=== PATIENT | female | born 1950 | race Caucasian/White ===

== ENCOUNTER 2017-03-05 14:31 | Emergency (ER) | payer MEDICARE, MEDICAID ==
[~2017-03-05] VITALS: Ht 157.5 cm; Wt 78.0 kg
[2017-03-05 14:41] VITALS: BP 159/78; PULSE 81; RESP 18; TEMP 98.7; O2SAT 95
[2017-03-05] MEDS ORDERED: TRAZ100T6 PO (14:57)
[2017-03-05] MEDS ORDERED: LEVO25TA4 PO (14:57)
[2017-03-05] MEDS ORDERED: PROT40TA PO (14:57)
[2017-03-05] MEDS ORDERED: METO25TA6 PO (14:57)
[2017-03-05] MEDS ORDERED: VITA250C3 CHEW (14:57)
[2017-03-05] MEDS ORDERED: GABA100C4 PO (14:57)
[2017-03-05] MEDS ORDERED: VITA1CAP7 (14:57)
[2017-03-05] MEDS ORDERED: CYAN50LO (14:57)
[2017-03-05] MEDS ORDERED: PRED10 PO (14:57)
[2017-03-05] MEDS ORDERED: ZOLO50TA PO (14:57)
[2017-03-05] MEDS ORDERED: SERO100T PO (14:57)
[2017-03-05] MEDS ORDERED: VITA1000 PO (14:57)
[2017-03-05] MEDS ORDERED: LEVE250 PO (14:57)
[2017-03-05 15:03] VITALS: RESP 18; O2SAT 95
[2017-03-05 15:53] LABS: BASOPHIL % 0.3 % (0.0-2.0); EOSINOPHIL % 0.3 % (0.0-4.0); HEMATOCRIT 41.1 % (35.0-46.0); HEMO FLAGS DIFF FINAL; LYMPH % 16.8 % (9.0-44.0); LYMPHOCYTE # 1.3 TH/MM3 (1.0-4.8); MEAN CELL VOLUME 86.2 FL (80.0-100.0); MEAN CORPUSCULAR HEMOGLOBIN 28.1 PG (27.0-34.0); MEAN CORPUSCULAR HGB CONC 32.6 % (32.0-36.0); NEUT % 79.6 % (16.0-70.0); PLATELET COUNT 236 TH/MM3 (150-450); RED BLOOD COUNT 4.77 MIL/MM3 (4.00-5.30); RED CELL DISTRIBUTION WIDTH 17.6 % (11.6-17.2); WHITE BLOOD COUNT 7.6 TH/MM3 (4.0-11.0)
--- NOTE | 2017-03-05 16:04 | RADRPT ---
EXAM DATE/TIME: 03/05/2017 15:18 [facility] COMPARISON: No previous studies available for comparison. INDICATIONS : Right arm pain. MEDICAL HISTORY : Hypertension. Gastroesophageal reflux disease. Thyroid disease. Cerebrovascular accident. Migraines. Asthma. SURGICAL HISTORY : Cholecystectomy. Appendectomy. Hysterectomy. section. Right above the knee amputation. ENCOUNTER: Initial ACUITY: 2 day PAIN SCORE: 5/10 LOCATION: Right arm. FINDINGS: There is spontaneous flow documented in the brachial, basilic, cephalic, axillary, and subclavian vei ns. The vessels are compressible and augmentation response is documented. No filling defects are se en. The flow is phasic with respiration. Direction of flow in the jugular vein is caudal. CONCLUSION: No DVT of the right upper extremity. Jameson Hollins MD on March 05, 2017 at 16:02 Board Certified Radiologist. This report was verified electronically.
[2017-03-05 16:06] LABS: BACTERIA, URINE RARE /hpf; BLOOD, URINE NEG (NEG); GLUCOSE,URINE NEG (NEG); KETONE, URINE NEG (NEG); NITRITE,URINE NEG (NEG); SQUAMOUS EPITHELIAL CELL URINE 1 /hpf (0-5); URINE COLOR LIGHT-YELLOW (YELLW/STRAW)
[2017-03-05 16:06] LABS: ALT (GPT) 25 U/L (10-53); ANION GAP 6 MEQ/L (5-15); AST (GOT) 23 U/L (15-37); BICARBONATE 29.6 MEQ/L (21.0-32.0); BLOOD UREA NITROGEN 5 MG/DL (7-18); CHLORIDE 107 MEQ/L (98-107); GLOMERULAR FILTRATION RATE 73 ML/MIN (>89); SODIUM (NA) 143 MEQ/L (136-145)
[2017-03-05 16:09] LABS: ALKALINE PHOSPHATASE 75 U/L (45-117); APTT (PATIENT) 25.2 SEC (24.3-30.1); PROTHROMBIN TIME - PATIENT 10.7 SEC (9.8-11.6); TOTAL BILIRUBIN ADULT 0.3 MG/DL (0.2-1.0)
[2017-03-05 16:09] LABS: COMMENT (UR) CATH-CULTURE IND; CULTURE IF INDICATED CATH CULTURE IND
--- NOTE | 2017-03-05 16:21 | RADRPT ---
EXAM DATE/TIME: 03/05/2017 16:08 [facility] COMPARISON: No previous studies available for comparison. INDICATIONS : Nontraumatic right arm pain. MEDICAL HISTORY : Chronic obstructive pulmonary disease. Hypertension Deep venous thrombosis. SURGICAL HISTORY : IVC filter placement. ENCOUNTER: Initial ACUITY: 1 day PAIN SCORE: 10/10 LOCATION: Right arm FINDINGS: The right humerus is intact and has normal morphology. There is mild osteoarthritis of the acromioclavicular and glenohumeral joints of the right shoulder. CONCLUSION: Right humerus within normal limits. Mild right shoulder osteoarthritis. Jameson Hollins MD on March 05, 2017 at 16:18 Board Certified Radiologist. This report was verified electronically.
--- NOTE | 2017-03-05 16:31 | RADRPT ---
EXAM DATE/TIME: 03/05/2017 16:02 [facility] COMPARISON: No previous studies available for comparison. INDICATIONS : Shortness of breath. MEDICAL HISTORY : Chronic obstructive pulmonary disease. Hypertension Deep venous thrombosis. SURGICAL HISTORY : IVC filter placement. ENCOUNTER: Initial ACUITY: 1 day PAIN SCORE: 0/10 LOCATION: Bilateral chest FINDINGS: The heart and mediastinal structures are normal. The pulmonary vascular pattern is also normal. Min imal right perihilar streakiness is noted consistent with probable atelectasis. There is elevation o f the right hemidiaphragm. CONCLUSION: 1. Right perihilar streakiness consistent with atelectasis and/or scarring. 2. Elevation of the right hemidiaphragm. Peter Pinzon MD on March 05, 2017 at 16:14 Board Certified Radiologist. This report was verified electronically.
--- NOTE | 2017-03-05 16:44 | RADRPT ---
EXAM DATE/TIME: 03/05/2017 16:05 [facility] COMPARISON: No previous studies available for comparison. INDICATIONS : Nontraumatic right arm pain. MEDICAL HISTORY : Chronic obstructive pulmonary disease. Hypertension. Deep venous thrombosis. SURGICAL HISTORY : IVC filter placement. ENCOUNTER: Initial ACUITY: 1 day PAIN SCORE: 10/10 LOCATION: Right arm FINDINGS: Mild degenerative changes are noted involving the right acromioclavicular and glenohumeral joints. T here is no acute fracture or dislocation. CONCLUSION: 1. No acute fracture or dislocation. 2. Mild degenerative changes involving the right acromioclavicular and glenohumeral joints. Peter Pinzon MD on March 05, 2017 at 16:16 Board Certified Radiologist. This report was verified electronically.
[2017-03-05 16:55] VITALS: BP 144/72; PULSE 80; RESP 18; O2SAT 96
[2017-03-05] MEDS ORDERED: MORPHINE SULFATE 4 MG/ML INJ IV PUSH ONE ×2 (17:00→18:15)
--- NOTE | 2017-03-05 17:15 | RADRPT ---
EXAM DATE/TIME: 03/05/2017 16:54 [facility] COMPARISON: No previous studies available for comparison. INDICATIONS : Abdomen pain. ORAL CONTRAST: No oral contrast ingested. RADIATION DOSE: 10.63 CTDIvol (mGy) MEDICAL HISTORY : Cardiovascular disease. Stroke Diabetes mellitus type 2. SURGICAL HISTORY : None. ENCOUNTER: Initial ACUITY: 1 day PAIN SCALE: 4/10 LOCATION: Bilateral abdomen TECHNIQUE: Volumetric scanning of the abdomen and pelvis was performed. Using automated exposure control and ad justment of the mA and/or kV according to patient size, radiation dose was kept as low as reasonably achievable to obtain optimal diagnostic quality images. DICOM format image data is available electro nically for review and comparison. FINDINGS: LOWER LUNGS: Right basilar discoid atelectasis and/or fibrotic scarring is noted. Elevation of the right hemidiaph ragm is noted. LIVER: Homogeneous density without lesion. There is no dilation of the biliary tree. No calcified gallston es. Status post cholecystectomy. SPLEEN: Normal size without lesion. PANCREAS: Within normal limits. KIDNEYS: Normal in size and shape. There is no mass, stone, or hydronephrosis. ADRENAL GLANDS: Within normal limits. VASCULAR: There is no aortic aneurysm. An inferior vena cava filter is noted. BOWEL/MESENTERY: Uncomplicated colonic diverticulosis is noted. ABDOMINAL WALL: Within normal limits. RETROPERITONEUM: There is no lymphadenopathy. BLADDER: No wall thickening or mass. REPRODUCTIVE: Within normal limits. INGUINAL: There is no lymphadenopathy or hernia. MUSCULOSKELETAL: Mild degenerative changes are noted throughout the thoracic spine. CONCLUSION: 1. Uncomplicated colonic diverticulosis. 2. No acute intra-abdominal process. Peter Pinzon MD on March 05, 2017 at 17:08 Board Certified Radiologist. This report was verified electronically.
--- NOTE | 2017-03-05 18:05 | PD ---
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 She's been out of the hospital for one month and doing well but over the past week she says she's been increasingly fatigued, she says she's been nauseous and she's had some loose stools. She also says she's had a lot of pain in her right arm. She says she has been told in the past that she has a rotator cuff injury on the right side. She has a new wheelchair that she' s been having a transfer from and she wonders if that's exacerbated her pain. She also wasn't sure if she sprained her arm when she fell earlier today as she fell during a transfer. She did have a PICC line in that arm a month ago. PFSH Past Medical History Asthma: Yes Cardiovascular Problems: Yes Cerebrovascular Accident: Yes Diabetes: Yes Patient Takes Glucophage: No GERD: Yes Hypertension: Yes Respiratory: Yes Migraines: Yes Thyroid Disease: Yes Tetanus Vaccination: > 5 Years Influenza Vaccination: No Past Surgical History Appendectomy: Yes Section: Yes (X1) Cholecystectomy: Yes Hysterectomy: Yes Social History Alcohol Use: No Tobacco Use: No Substance Use: No Allergies-Medications (Allergen,Severity, Reaction): Coded Allergies: Iodinated Contrast- Oral and IV Dye (Verified Allergy, Severe, CARDIAC ARREST, 03/05/17) Vjzzgvi-Zec-Ivr Reductase Inhibitor (Verified Allergy, Intermediate, RHABDO, 03/05/17) codeine (Verified Allergy, Intermediate, HIVES, 03/05/17) erythromycin base (Verified Allergy, Intermediate, ARRHYTHMIAS, 03/05/17) metoclopramide (Verified Allergy, Intermediate, RASH, 03/05/17) prochlorperazine (Verified Allergy, Intermediate, RASH, 03/05/17) promethazine (Verified Allergy, Intermediate, RASH, 03/05/17) Reported Meds & Prescriptions Reported Meds & Active Scripts Active Reported Vitamin B-12 (Cyanocobalamin (Vitamin B-12)) 50 Mcg Lozenge Vitamin A (Vitamin A Palmitate) 10,000 Unit Capsule Vitamin D-1000 (Cholecalciferol) 1,000 Unit Tab 1,000 Units PO DAILY Vitamin C (Ascorbic Acid) 250 Mg Chew 250 Mg CHEW DAILY Trazodone (Trazodone HCl) 100 Mg Tablet 100 Mg PO HS Zoloft (Sertraline HCl) 50 Mg Tab 50 Mg PO DAILY Seroquel (Quetiapine Fumarate) 100 Mg Tab 100 Mg PO HS Keppra (Levetiracetam) 250 Mg Tab 100 Mg PO BID Levothyroxine (Levothyroxine Sodium) 25 Mcg Tab 25 Mcg PO DAILY Protonix (Pantoprazole Sodium) 40 Mg Tab 40 Mg PO DAILY Prednisone 10 Mg Tab 10 Mg PO DAILY Gabapentin 100 Mg Cap 200 Mg PO QID Metoprolol Succinate ER 24 HR (Metoprolol Succinate) 25 Mg Tab 12.5 Mg PO BID Review of Systems Except as stated in HPI: all other systems reviewed are Neg Physical Exam Narrative GENERAL:Well appearing, no acute distress SKIN: Dry with skin tenting. No warmth or redness or swelling of the right upper extremity. HEAD: Atraumatic. Normocephalic. EYES: Pupils equal and round. No injection or drainage. ENT: Moist mucous membranes NECK: Trachea midline. CARDIOVASCULAR: Regular rate and rhythm. No murmur appreciated. 2+ bilateral radial pulses with normal capillary refill in both hands. RESPIRATORY: Clear to auscultation. Breath sounds equal bilaterally. GASTROINTESTINAL: Abdomen soft, mildly diffusely tender with no rebound or guarding. MUSCULOSKELETAL: Pain with abduction of the right shoulder, tender to palpation over the right humerus. NEUROLOGICAL: Awake and alert. No obvious cranial nerve deficits. No dysarthria or aphasia. No upper or lower extremity drift. No upper extremity ataxia. Visual figueroa intact. PSYCHIATRIC: Appropriate mood and affect; insight and judgment normal. Data Data Last Documented VS Vital Signs Date Time Temp Pulse Resp B/P (MAP) Pulse Ox O2 Delivery O2 Flow Rate FiO2 03/05/17 16:55 80 18 144/72 (96) 96 Room Air 03/05/17 14:41 98.7 Orders Orders Complete Blood Count With Diff (03/05/17 14:48) Comprehensive Metabolic Panel (03/05/17 14:48) Prothrombin Time / Inr (Pt) (03/05/17 14:48) Act Partial Throm Time (Ptt) (03/05/17 14:48) Lactic Acid Sepsis Protocol (03/05/17 14:48) Urinalysis - C+S If Indicated (03/05/17 14:48) Blood Culture (03/05/17 14:48) Chest, Single Ap (03/05/17 14:48) Blood Glucose (03/05/17 14:48) Ecg Monitoring (03/05/17 14:48) Iv Access Insert/Monitor (03/05/17 14:48) Oximetry (03/05/17 14:48) Oxygen Administration (03/05/17 14:48) Cath For Specimen (03/05/17 14:48) Humerus (Min 2vws) (03/05/17 ) Shoulder, Limited(2vws) (03/05/17 ) Us Arm Venous Doppler (03/05/17 ) Ed Poc Ultrasound (03/05/17 ) Urine Culture (03/05/17 15:55) Ct Abd/Pel W/O Iv Contrast (03/05/17 14:48) Morphine Inj (Morphine Inj) (03/05/17 17:00) Labs Laboratory Tests Test 03/05/17 15:30 03/05/17 15:35 03/05/17 15:55 White Blood Count 7.6 TH/MM3 Red Blood Count 4.77 MIL/MM3 Hemoglobin 13.4 GM/DL Hematocrit 41.1 % Mean Corpuscular Volume 86.2 FL Mean Corpuscular Hemoglobin 28.1 PG Mean Corpuscular Hemoglobin Concent 32.6 % Red Cell Distribution Width 17.6 % Platelet Count 236 TH/MM3 Mean Platelet Volume 8.0 FL Neutrophils (%) (Auto) 79.6 % Lymphocytes (%) (Auto) 16.8 % Monocytes (%) (Auto) 3.0 % Eosinophils (%) (Auto) 0.3 % Basophils (%) (Auto) 0.3 % Neutrophils # (Auto) 6.0 TH/MM3 Lymphocytes # (Auto) 1.3 TH/MM3 Monocytes # (Auto) 0.2 TH/MM3 Eosinophils # (Auto) 0.0 TH/MM3 Basophils # (Auto) 0.0 TH/MM3 CBC Comment DIFF FINAL Differential Comment Prothrombin Time 10.7 SEC Prothromb Time International Ratio 1.0 RATIO Activated Partial Thromboplast Time 25.2 SEC Blood Urea Nitrogen 5 MG/DL Creatinine 0.79 MG/DL Random Glucose 112 MG/DL Total Protein 7.4 GM/DL Albumin 3.5 GM/DL Calcium Level 9.0 MG/DL Alkaline Phosphatase 75 U/L Aspartate Amino Transf (AST/SGOT) 23 U/L Alanine Aminotransferase (ALT/SGPT) 25 U/L Total Bilirubin 0.3 MG/DL Sodium Level 143 MEQ/L Potassium Level 4.0 MEQ/L Chloride Level 107 MEQ/L Carbon Dioxide Level 29.6 MEQ/L Anion Gap 6 MEQ/L Estimat Glomerular Filtration Rate 73 ML/MIN Lactic Acid Level 1.2 mmol/L Urine Color LIGHT-YELLOW Urine Turbidity CLEAR Urine pH 7.0 Urine Specific [place] 1.003 Urine Protein NEG mg/dL Urine Glucose (UA) NEG mg/dL Urine Ketones NEG mg/dL Urine Occult Blood NEG Urine Nitrite NEG Urine Bilirubin NEG Urine Urobilinogen LESS THAN 2.0 MG/DL Urine Leukocyte Esterase NEG Urine RBC LESS THAN 1 /hpf Urine WBC 1 /hpf Urine Squamous Epithelial Cells 1 /hpf Urine Bacteria RARE /hpf Microscopic Urinalysis Comment CATH-CULTURE IND MDM Medical Decision Making Medical Screen Exam Complete: Yes Emergency Medical Condition: Yes Interpretation(s) Afebrile, no tachycardia, hypertensive No leukocytosis Electrolytes are reassuring Lactic acid is 1.2 Coags are normal Urinalysis is negative for infection Last 24 hours Impressions Chest X-Ray 03/05/171447 Signed Impressions: Service Date/Time: Sunday, March 05, 2017 16:02 - CONCLUSION: 1. Right perihilar streakiness consistent with atelectasis and/or scarring. 2. Elevation of the right hemidiaphragm. Peter Pinzon MD Abdomen/Pelvis CT 03/05/17 1448 Signed Impressions: Service Date/Time: Sunday, March 05, 2017 16:54 - CONCLUSION: 1. Uncomplicated colonic diverticulosis. 2. No acute intra-abdominal process. Peter Pinzon MD Upper Extremity Ultrasound 03/05/17 0000 Signed Impressions: Service Date/Time: Sunday, March 05, 2017 15:18 - CONCLUSION: No DVT of the right upper extremity. Jameson Hollins MD Shoulder X-Ray 03/05/17 0000 Signed Impressions: Service Date/Time: Sunday, March 05, 2017 16:05 - CONCLUSION: 1. No acute fracture or dislocation. 2. Mild degenerative changes involving the right acromioclavicular and glenohumeral joints. Peter Pinzon MD Humerus X-Ray 03/05/17 0000 Signed Impressions: Service Date/Time: Sunday, March 05, 2017 16:08 - CONCLUSION: Right humerus within normal limits. Mild right shoulder osteoarthritis. Jameson Hollins MD Differential Diagnosis Shoulder dislocation, proximal humerus fracture, cellulitis, DVT, colitis, sepsis, dehydration Narrative Course This is a 67-year-old female who has been ill with sepsis and was discharged one month ago who presents today with fatigue and weakness and right arm pain. Given her recent complicated medical history she had an extensive workup performed in the emergency department she was placed on a monitor and an IV was established. Labs are obtained which are reassuring with no leukocytosis. Electrolytes are reassuring with no signs of dehydration. CT abdomen and pelvis was performed which was negative for acute abdominal process. Ultrasound of the right upper extremity was performed which was negative for DVT and x-rays of the shoulder and humerus were performed which were unremarkable. I don't appreciate any signs of cellulitis in the right upper extremity. I suspect her pain in her right upper extremity is musculoskeletal. I did speak to Dr. Christensen is the patient's primary care physician who was agreeable to follow-up with the patient later on in the week. I think she is safe to be discharged. Diagnosis Primary Impression: Arm pain Qualified Codes: M79.601 - Pain in right arm Additional Impression: Diarrhea Qualified Codes: R19.7 - Diarrhea, unspecified Patient Instructions: General Instructions Additional Instructions: If you develop severe or worsening abdominal pain, fever>100.4, persistent vomiting or inability to eat or drink return to the emergency department immediately. Follow up with your primary care physician later this week Med/Other Pt SpecificInfo: No Change to Meds Disposition: 01 DISCHARGE HOME Condition: Stable Savannah Schaefer MD Mar 05, 2017 18:05
[2017-03-05] MEDS ORDERED: ACETAMINOPHEN/HYDROcodone 325 MG/5 MG TAB PO ONE (18:15)
== END 2017-03-05 20:07 | disposition home or self-care (01) ==
LOC: NEPC 14:31
DX: M79.601 Pain in right arm (principal); R19.7 Diarrhea, unspecified; R53.83 Other fatigue; M19.011 Primary osteoarthritis, right shoulder; B96.89 Other specified bacterial agents as the cause of diseases classified elsewhere; K57.30 Diverticulosis of large intestine without perforation or abscess without bleeding; I10 Essential (primary) hypertension; E11.9 Type 2 diabetes mellitus without complications; K21.9 Gastro-esophageal reflux disease without esophagitis
CPT/HCPCS: 71010; 73030; 73060; 74176; 80053; 81001; 83605; 85025; 85610; 85730; 87040; 87077; 87086; 87186; 93971; 96374; 99285; J2270

== ENCOUNTER 2017-04-03 21:50 | Emergency (ER) | payer MEDICARE, MEDICAID ==
[~2017-04-03] VITALS: Ht 157.5 cm; Wt 77.0 kg
[~2017-04-03 21:50] MED LIST: CYAN50LO; GABA100C4 PO; LEVE250 PO; LEVO25TA4 PO; METO25TA6 PO; PRED10 PO; PROT40TA PO; SERO100T PO; TRAZ100T6 PO; VITA1000 PO; VITA1CAP7; VITA250C3 CHEW; ZOLO50TA PO
[2017-04-03 22:10] VITALS: BP 171/78; PULSE 74; RESP 19; TEMP 98.4; O2SAT 98; O2SAT 99
[2017-04-03 22:43] LABS: AUTOMATED NEUTROPHIL # 3.1 TH/MM3 (1.8-7.7); BASOPHIL # 0.1 TH/MM3 (0-0.2); BASOPHIL % 0.8 % (0.0-2.0); EOSINOPHIL # 0.2 TH/MM3 (0-0.4); EOSINOPHIL % 3.1 % (0.0-4.0); HEMATOCRIT 40.9 % (35.0-46.0); HEMO FLAGS DIFF FINAL; LYMPH % 39.6 % (9.0-44.0); LYMPHOCYTE # 2.7 TH/MM3 (1.0-4.8); MEAN CELL VOLUME 86.1 FL (80.0-100.0); MEAN CORPUSCULAR HGB CONC 32.6 % (32.0-36.0); NEUT % 46.5 % (16.0-70.0); PLATELET COUNT 212 TH/MM3 (150-450); RED BLOOD COUNT 4.75 MIL/MM3 (4.00-5.30); RED CELL DISTRIBUTION WIDTH 16.2 % (11.6-17.2); WHITE BLOOD COUNT 6.7 TH/MM3 (4.0-11.0)
[2017-04-03 22:52] LABS: APTT (PATIENT) 24.6 SEC (24.3-30.1); PROTHROMBIN TIME - PATIENT 10.7 SEC (9.8-11.6)
--- NOTE | 2017-04-03 22:52 | PD ---
HPI Chief Complaint: Seizure Time Seen by Provider: 22:27 Travel History International Travel<30 days: No Contact w/Intl Traveler<30days: No Traveled to known affect area: No History of Present Illness HPI The patient is a 67 year old female who presents to the [facility] emergency department with a history of having a generalized tonic-clonic seizure prior to arrival. She reports that the last time that she had a seizure was approximately a year ago. She reports that she has been taking her Keppra as prescribed, however over the last few weeks she has had an exacerbation of her gastroparesis and has had intermittent nausea, vomiting, and diarrhea. She reports that she may not have kept down some of her seizure medicine. The patient also reports that she's had a migraine headache for the last 3 weeks. She reports that she does suffer with severe migraine headaches and usually has some 25-28 days out of the month. She reports that they were being helped with Botox administrations, however her neurologist stopped doing them. She has been referred to a new neurologist and has an appointment scheduled for next week. The final concern on review of systems is that the patient has right arm pain. She reports that she's had this for an extended period of time, however it seems to be gradually getting worse with time. She reports that the pain radiates down and as a burning sensation into the right hand. On review of systems, the patient denies any recent known fevers,cough, congestion, neck pain, chest pain, shortness of breath, abdominal pain, urinary symptoms, or other neurologic symptoms. 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 Her primary care physician as Dr. Christensen Asthma: Yes Cardiovascular Problems: Yes Cerebrovascular Accident: Yes Diabetes: Yes Patient Takes Glucophage: No GERD: Yes Headaches: Yes Hypertension: Yes Medical other: Yes (ADDISONS ) Respiratory: Yes Immunizations Current: Yes Migraines: Yes Seizures: Yes Thyroid Disease: Yes ?: Not Past Surgical History Narrative Surgical The patient's past surgical history is significant for appendectomy, , cholecystectomy, hysterectomy. Appendectomy: Yes Section: Yes (X1) Cholecystectomy: Yes Hysterectomy: Yes Social History Alcohol Use: No Tobacco Use: No Substance Use: No Allergies-Medications (Allergen,Severity, Reaction): Coded Allergies: Iodinated Contrast- Oral and IV Dye (Verified Allergy, Severe, CARDIAC ARREST, 03/05/17) Ucpjyro-Xjl-Pgy Reductase Inhibitor (Verified Allergy, Intermediate, RHABDO, 03/05/17) codeine (Verified Allergy, Intermediate, HIVES, 03/05/17) erythromycin base (Verified Allergy, Intermediate, ARRHYTHMIAS, 03/05/17) metoclopramide (Verified Allergy, Intermediate, RASH, 03/05/17) prochlorperazine (Verified Allergy, Intermediate, RASH, 03/05/17) promethazine (Verified Allergy, Intermediate, RASH, 03/05/17) Reported Meds & Prescriptions Reported Meds & Active Scripts Active Reported Vitamin B-12 (Cyanocobalamin (Vitamin B-12)) 50 Mcg Lozenge Vitamin A (Vitamin A Palmitate) 10,000 Unit Capsule Vitamin D-1000 (Cholecalciferol) 1,000 Unit Tab 1,000 Units PO DAILY Vitamin C (Ascorbic Acid) 250 Mg Chew 250 Mg CHEW DAILY Trazodone (Trazodone HCl) 100 Mg Tablet 100 Mg PO HS Zoloft (Sertraline HCl) 50 Mg Tab 50 Mg PO DAILY Seroquel (Quetiapine Fumarate) 100 Mg Tab 100 Mg PO HS Keppra (Levetiracetam) 250 Mg Tab 100 Mg PO BID Levothyroxine (Levothyroxine Sodium) 25 Mcg Tab 25 Mcg PO DAILY Protonix (Pantoprazole Sodium) 40 Mg Tab 40 Mg PO DAILY Prednisone 10 Mg Tab 10 Mg PO DAILY Gabapentin 100 Mg Cap 200 Mg PO QID Metoprolol Succinate ER 24 HR (Metoprolol Succinate) 25 Mg Tab 12.5 Mg PO BID Review of Systems Except as stated in HPI: all other systems reviewed are Neg General / Constitutional: No: Fever Eyes: No: Visual changes HENT: No: Headaches Cardiovascular: No: Chest Pain or Discomfort Respiratory: No: Shortness of Breath Gastrointestinal: Positive: Nausea, Vomiting, Diarrhea, Changes in Bowel Habits , Loss of Appetite, No: Abdominal Pain, Indigestion Genitourinary: No: Dysuria Musculoskeletal: No: Pain Skin: No Rash Neurologic: Positive: Headache, Seizures, No: Weakness, Focal Abnormalities, Change in Mentation, Slurred Speech, Sensory Disturbance Psychiatric: No: Depression Endocrine: No: Polydipsia Hematologic/Lymphatic: No: Easy Bruising Physical Exam Narrative General: The patient is a well-developed well-nourished female in no acute distress. Head and Neck exam: Head is normocephalic atraumatic. Eyes: EOMI, pupils are equal round and reactive to light. Nose: Midline septum with pink mucous membranes Mouth: Dentition unremarkable. Moist mucus membranes. Posterior oropharynx is not erythematous. No tonsillar hypertrophy. Uvula midline. Airway patent. Neck: No palpable lymphadenopathy. No nuchal rigidity. No thyromegaly. Cardiovascular: Regular rate and rhythm without murmurs, gallops, or rubs. Lungs: Clear to auscultation bilaterally. No wheezes, rhonchi, or rales. Abdomen: Soft, without tenderness to palpation in all 4 quadrants of the abdomen. No guarding, rebound, or rigidity. Normal bowel sounds are audible. No tenderness on palpation of McBurney's point. Negative Vazquez's sign. Extremities: No clubbing, cyanosis, or edema. 2+ pulses in all 4 extremities. No calf tenderness on palpation. The patient has a history of a right [id number]-[id number] amputation, stump appears to be in good repair. The patient on examination of the area of interest, the right shoulder. The patient reports pain with flexion , extension, internal and external rotation of the right shoulder. There is no deformity, no crepitus or step-off. No erythema or edema. Back: No costovertebral angle tenderness to palpation. Neurologic Exam: Grossly nonfocal. Skin Exam: No rash noted. Intact skin that is warm and dry. Data Data Last Documented VS Vital Signs Date Time Temp Pulse Resp B/P (MAP) Pulse Ox O2 Delivery O2 Flow Rate FiO2 04/03/17 22:10 98.4 74 19 171/78 (109) 99 04/03/17 22:10 Room Air Orders Orders Electrocardiogram (04/03/17 22:27) Complete Blood Count With Diff (04/03/17 22:27) Comprehensive Metabolic Panel (04/03/17 22:27) Creatine Kinase (Cpk) (04/03/17 22:27) Ckmb (Isoenzyme) Profile (04/03/17 22:27) Troponin I (04/03/17 22:27) B-Type Natriuretic Peptide (04/03/17 22:27) Prothrombin Time / Inr (Pt) (04/03/17:) Act Partial Throm Time (Ptt) (04/03/17 22:) Lipase (04/03/17:) Urinalysis - C+S If Indicated (04/03/17:) Cath For Specimen (04/03/17:) Magnesium (Mg) (04/03/17 22:27) Thyroid Stimulating Hormone (04/03/17 22:27) Chest, Single Ap (04/03/17:) Ct Brain W/O Iv Contrast(Rout) (04/03/17:27) Iv Access Insert/Monitor (04/03/17 22:27) Ecg Monitoring (04/03/17:) Oximetry (04/03/17:) Morphine Inj (Morphine Inj) (04/04/17 00:15) Ondansetron Inj (Zofran Inj) (04/04/17 00:15) Sodium Chlorid 0.9% 500 Ml Inj (Ns 500 M (04/04/17 00:15) Shoulder, Complete (>2vws) (04/04/17 01:10) Ice/Cold Pack (04/04/17 01:10) Morphine Inj (Morphine Inj) (04/04/17 03:30) Acetamin-Hydrocod 325-5 Mg ([place] 5-325 (04/04/17 03:30) Labs Laboratory Tests Test 04/03/17 22:30 White Blood Count 6.7 TH/MM3 Red Blood Count 4.75 MIL/MM3 Hemoglobin 13.3 GM/DL Hematocrit 40.9 % Mean Corpuscular Volume 86.1 FL Mean Corpuscular Hemoglobin 28.0 PG Mean Corpuscular Hemoglobin Concent 32.6 % Red Cell Distribution Width 16.2 % Platelet Count 212 TH/MM3 Mean Platelet Volume 8.2 FL Neutrophils (%) (Auto) 46.5 % Lymphocytes (%) (Auto) 39.6 % Monocytes (%) (Auto) 10.0 % Eosinophils (%) (Auto) 3.1 % Basophils (%) (Auto) 0.8 % Neutrophils # (Auto) 3.1 TH/MM3 Lymphocytes # (Auto) 2.7 TH/MM3 Monocytes # (Auto) 0.7 TH/MM3 Eosinophils # (Auto) 0.2 TH/MM3 Basophils # (Auto) 0.1 TH/MM3 CBC Comment DIFF FINAL Differential Comment Prothrombin Time 10.7 SEC Prothromb Time International Ratio 1.0 RATIO Activated Partial Thromboplast Time 24.6 SEC Blood Urea Nitrogen 4 MG/DL Creatinine 0.82 MG/DL Random Glucose 84 MG/DL Total Protein 7.5 GM/DL Albumin 3.7 GM/DL Calcium Level 8.7 MG/DL Magnesium Level 1.9 MG/DL Alkaline Phosphatase 65 U/L Aspartate Amino Transf (AST/SGOT) 27 U/L Alanine Aminotransferase (ALT/SGPT) 27 U/L Total Bilirubin 0.4 MG/DL Sodium Level 139 MEQ/L Potassium Level 3.8 MEQ/L Chloride Level 105 MEQ/L Carbon Dioxide Level 24.1 MEQ/L Anion Gap 10 MEQ/L Estimat Glomerular Filtration Rate 70 ML/MIN Total Creatine Kinase 54 U/L Troponin I LESS THAN 0.02 NG/ML B-Type Natriuretic Peptide 29 PG/ML Lipase 153 U/L Thyroid Stimulating Hormone 3rd Gen 1.900 uIU/ML MDM Medical Decision Making Medical Screen Exam Complete: Yes Emergency Medical Condition: Yes Medical Record Reviewed: Yes Interpretation(s) Last Impressions Shoulder X-Ray 04/04/17109 Signed Impressions: Service Date/Time: Tuesday, April 04, 2017 01:23 - CONCLUSION: Normal examination for a patient of this age. Tramaine Munroe MD Head CT 04/03/172226 Signed Impressions: Service Date/Time: Monday, April 03, 2017 22:45 - CONCLUSION: Normal examination for a patient of this age. Tramaine Munroe MD Chest X-Ray 04/03/172226 Signed Impressions: Service Date/Time: Monday, April 03, 2017 22:31 - CONCLUSION: 1. Linear atelectasis or scarring at the lung bases. Elevated right hemidiaphragm. No active disease. Tramaine Munroe MD Differential Diagnosis Vomiting causing lowered antiepileptic medication levels, versus lowered seizure threshold related to viral syndrome, versus intracranial abnormality. Narrative Course During the course of the patients emergency department visit, the patients history, examination, and differential diagnosis were reviewed with the patient. The patient had IV access obtained and blood work sent for analysis. The patient was placed on a secured entrance monitor with oximetry and blood pressure monitoring. An ECG was done on arrival. The patient's ECG reveals a sinus rhythm heart rate of 63, QRS duration is 101 ms, QTC 424 ms, no acute ST segment elevation or depression. T waves are inverted in V1. The patient was initially provided normal saline IV fluids, morphine for pain, Zofran for nausea. The patients laboratory studies were reviewed and remarkable for white count 6.7 , hemoglobin 13.3, platelets 212 with a monocytosis at 10, CMP is remarkable for a BUN of 4, GFR 70, CPK 54, troponin I less than 0.02, BNP is 29, lipase 153 , TSH 1.9, PT 10.7, PTT 24.6 Radiology studies were reviewed and remarkable for a chest x-ray that shows linear atelectasis or scarring at the lung bases, elevated right hemidiaphragm, no active disease. CT scan of the brain showed no acute abnormality. Shoulder x-ray on the right reveals a normal examination. No evidence of dislocation related to seizure. The patient will be discharged home to follow-up with her neurologist that she reports that she has had an appointment with a new neurologist scheduled later this week. The patient is resting comfortably and feels better, is alert and in no distress. The patients results and examination findings were discussed with the patient. The repeat examination is unremarkable and benign. The history, exam, diagnostic testing, and current condition do not suggest any significant pathology to warrant further testing, continued ED treatment, admission, or surgical evaluation at this point. The vital signs have been stable. The patient does not have uncontrollable pain, intractable vomiting, or other significant symptoms. The patient's condition is stable and appropriate for discharge. The patient will pursue further outpatient evaluation with a primary care physician or other designated or consulting physician as indicated in the discharge instructions. The patient expressed understanding and was agreeable with this plan. Diagnosis Primary Impression: Seizure disorder Additional Impression: Nausea, vomiting, and diarrhea Referrals: Neurologist Primary Care Physician Patient Instructions: Acute Nausea and Vomiting (ED), Chronic Diarrhea (ED), Epilepsy (ED), General Instructions Med/Other Pt SpecificInfo: Prescription(s) given, No Change to Meds Disposition: 01 DISCHARGE HOME Condition: Stable Jenny Lockett MD Apr 03, 2017 22:52
[2017-04-03 23:00] VITALS: BP 133/74; PULSE 85; RESP 16; O2SAT 97
--- NOTE | 2017-04-03 23:11 | RADRPT ---
EXAM DATE/TIME: 04/03/2017 22:45 [facility] COMPARISON: No previous studies available for comparison. INDICATIONS : Altered mental status, seizure. RADIATION DOSE: 56.35 CTDIvol (mGy) MEDICAL HISTORY : Cardiovascular disease. Hypertension. Diabetes mellitus type 1. SURGICAL HISTORY : Appendectomy. Cholecystectomy.Hysterectomy. ENCOUNTER: Initial ACUITY: 1 day PAIN SCALE: 0/10 LOCATION: cranial TECHNIQUE: Multiple contiguous axial images were obtained of the head. Using automated exposure control and adj ustment of the mA and/or kV according to patient size, radiation dose was kept as low as reasonably a chievable to obtain optimal diagnostic quality images. DICOM format image data is available electro nically for review and comparison. FINDINGS: CEREBRUM: The ventricles are normal for age. No evidence of midline shift, mass lesion, hemorrhage or acute in farction. No extra-axial fluid collections are seen. POSTERIOR FOSSA: The cerebellum and brainstem are intact. The 4th ventricle is midline. The cerebellopontine angle i s unremarkable. EXTRACRANIAL: The visualized portion of the orbits is intact. SKULL: The calvaria is intact. No evidence of skull fracture. CONCLUSION: Normal examination for a patient of this age. Tramaine Munroe MD on April 03, 2017 at 23:08 Board Certified Radiologist. This report was verified electronically.
--- NOTE | 2017-04-03 23:12 | RADRPT ---
EXAM DATE/TIME: 04/03/2017 22:31 [facility] COMPARISON: CHEST SINGLE AP, March 05, 2017, 16:02. INDICATIONS : Short of breath. MEDICAL HISTORY : Cardiovascular disease. Stroke Diabetes mellitus type 2. SURGICAL HISTORY : None. ENCOUNTER: Initial ACUITY: 1 week PAIN SCORE: 0/10 LOCATION: Bilateral chest FINDINGS: A single view of the chest demonstrates the lungs to be symmetrically aerated without evidence of mas s, infiltrate or effusion. Linear atelectasis or scarring at the bases. The cardiomediastinal contou rs are unremarkable. Osseous structures are intact. CONCLUSION: 1. Linear atelectasis or scarring at the lung bases. Elevated right hemidiaphragm. No active disease. Tramaine Munroe MD on April 03, 2017 at 23:10 Board Certified Radiologist. This report was verified electronically.
[2017-04-03 23:20] LABS: ALKALINE PHOSPHATASE 65 U/L (45-117); ALT (GPT) 27 U/L (10-53); ANION GAP 10 MEQ/L (5-15); AST (GOT) 27 U/L (15-37); BICARBONATE 24.1 MEQ/L (21.0-32.0); BLOOD UREA NITROGEN 4 MG/DL (7-18); CHLORIDE 105 MEQ/L (98-107); GLOMERULAR FILTRATION RATE 70 ML/MIN (>89); MAGNESIUM 1.9 MG/DL (1.5-2.5); SODIUM (NA) 139 MEQ/L (136-145); TOTAL BILIRUBIN ADULT 0.4 MG/DL (0.2-1.0)
[2017-04-03 23:24] LABS: CREATINE KINASE 54 U/L (26-192); POTASSIUM 3.8 MEQ/L (3.5-5.1)
[2017-04-04] MEDS ORDERED: SODIUM CHLORID 0.9% 500 ML INJ 500 ML IV ONE (00:15)
[2017-04-04] MEDS ORDERED: ONDANSETRON HCL 4 MG/2 ML VIAL IV PUSH ONE (00:15)
[2017-04-04] MEDS ORDERED: MORPHINE SULFATE 4 MG/ML INJ IV PUSH ONE ×2 (00:15→03:30)
[2017-04-04 01:00] VITALS: BP 148/69; PULSE 74; RESP 18; O2SAT 96
--- NOTE | 2017-04-04 02:12 | RADRPT ---
EXAM DATE/TIME: 04/04/2017 01:23 [facility] COMPARISON: No previous studies available for comparison. INDICATIONS : Right shoulder pain after seizure. MEDICAL HISTORY : Cardiovascular disease. Hypertension. Diabetes mellitus type 1. SURGICAL HISTORY : Appendectomy. Cholecystectomy.Hysterectomy. ENCOUNTER: Initial ACUITY: 1 day PAIN SCORE: 8/10 LOCATION: Right shoulder. FINDINGS: Multiple view examination of the right shoulder demonstrates no evidence of fracture or dislocation. The glenohumeral and acromioclavicular joints are maintained. There is normal range of motion betwe en internal and external rotation. Bony mineralization is normal. CONCLUSION: Normal examination for a patient of this age. Tramaine Munroe MD on April 04, 2017 at 2:09 Board Certified Radiologist. This report was verified electronically.
[2017-04-04] MEDS ORDERED: ACETAMINOPHEN/HYDROcodone 325 MG/5 MG TAB PO ONE (03:30)
[2017-04-04 07:44] VITALS: BP 141/76; PULSE 75; RESP 21; TEMP 98.7; O2SAT 96
--- NOTE | 2017-04-04 11:39 | EKG ---
Date Performed: 04/03/2017 Time Performed: 22:26:48 PTAGE: 67 years EKG: Sinus rhythm NORMAL ECG NO PREVIOUS TRACING DOCTOR: Abel Lockett Interpretating Date/Time 04/04/2017 11:36:35
== END 2017-04-04 08:30 | disposition home or self-care (01) ==
LOC: NEPC 21:50
DX: G40.909 Epilepsy, unspecified, not intractable, without status epilepticus (principal); R19.7 Diarrhea, unspecified; R11.2 Nausea with vomiting, unspecified; J45.909 Unspecified asthma, uncomplicated; I10 Essential (primary) hypertension; K31.84 Gastroparesis; E11.9 Type 2 diabetes mellitus without complications; Z79.899 Other long term (current) drug therapy
CPT/HCPCS: 70450; 71010; 73030; 80053; 82550; 83690; 83735; 83880; 84443; 84484; 85025; 85610; 85730; 93005; 96361; 96374; 96375; 99285; J2270; J2405; J7040; P9612